=== PATIENT | male | born 1980 | race Caucasian/White ===

== ENCOUNTER 2022-07-17 10:16 | Emergency (ER) | payer OTHER, SELFPAY ==
[2022-07-17 10:23] VITALS: BP 135/83; PULSE 88; RESP 15; TEMP 36.4; O2SAT 100; BMI 25.0
--- NOTE | 2022-07-17 11:52 | ED.MALEGU ---
HPI - Male Genitourinary General Chief complaint: Urogenital-Male Stated complaint: brusing,pain post urology appointment Time Seen by Provider: 07/17/22 10:56 Source: patient Mode of arrival: Ambulatory History of Present Illness HPI Narrative: 42-year-old male presents with concern for testicular changes with bruising, skin pain and some dry skin for the past 5-6 days. Patient states he has had chronic issues with mild tooth ache like intermittent testicular pain ever since his vasectomy in October of 2020. He did see urology for this that fall, he also states that he had an ultrasound about a month ago to evaluate things and nothing was found. Additionally he did go see urology in [place] of last week he said that they did not do any procedures but they did do a basic urologic/testicular exam at that time. It was the next morning after this that he woke up and found he had some bruising and increased tenderness to his testicles. He does not feel like the exam itself should have caused this. Since that time he has had gradually increasing pain and tenderness in the area with what he perceives to be increased bruising but also describes some flaking skin and possible red area. He has no concern for sexually transmitted infections, denies any history of yeast infections jock itch or other skin problems in the area. He states his chronic intermittent testicular pain has been a 1 or 2/10 and the pain he is had since Friday morning has been gradually increasing has been constant does not feel like a bruise and he rates it as 3/10. He has not noted any changes to skin anywhere else on his body also denies any other symptoms including fatigue, loss appetite, fevers, chills, nausea, vomiting, diarrhea, dysuria or any other symptoms. Related Data Home Medications Medication Instructions Recorded Confirmed lisinopril 20 mg tablet 20 mg PO DAILY 10/19/20 01/31/21 Previous Rx's Medication Instructions Recorded doxycycline hyclate 100 mg capsule 100 mg PO BID skin infection 7 07/17/22 days #14 caps Allergies Allergy/AdvReac Type Severity Reaction Status Date / Time No Known Drug Allergies Allergy Verified 07/17/22 10:24 Review of Systems Review of Systems Narrative: See HPI Patient History Medical History Sterilization consult Social History Smoking Status: Unknown if ever smoked Smoking Status: Unknown if ever smoked alcohol intake frequency: holidays/special occasions only Substance Use Type: does not use Exam Narrative Exam Narrative: GENERAL: 42 year old patient appears stated age. Well-developed patient, in mild distress. HEAD: Atraumatic. Normocephalic. EYES: Pupils equal round and reactive. Extraocular motions intact. No scleral icterus. No injection or drainage. ENT: Nose without bleeding, purulent drainage. Airway patent. NECK: Trachea midline. Non tender CARDIOVASCULAR: Regular rate and rhythm without murmurs, gallops, or rubs. RESPIRATORY: Clear to auscultation. No increased work of breathing or respiratory distress. GASTROINTESTINAL: Abdomen soft, non-tender, nondistended. 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 No obvious swelling or masses noted. Patient does have multiple areas with mild erythema and purplish bruising present both on the shaft of his penis and also on the scrotum. There isn't a roughly annular purplish lesion on the shaft of the patient's penis is approximately 2-1/2 cm in diameter, there is also a slightly dry and erythematous 2 cm lesion on the right inferior scrotum, additionally there are 1 cm and 2 cm purplish lesions on the anterior/inferior aspect of the patient's penis. They are nontender there is slight discharge from 1 of these lesions and otherwise no broken skin is noted, they are somewhat dry appearing and some are slightly scaling. No fluctuance noted, no induration no appreciable swelling. Skin is not tender/sensitive to light touch. EXTREMITIES: No edema or joint tenderness. BACK: Nontender without deformity or crepitance. No flank tenderness. NEURO: AOx3. SKIN: No rash or erythema of visible areas Initial Vital Signs Initial Vital Signs: Vital Signs Temperature 97.5 F L 07/17/22 10:23 Pulse Rate 88 07/17/22 10:23 Respiratory Rate 15 07/17/22 10:23 Blood Pressure 135/83 07/17/22 10:23 Pulse Oximetry 100 07/17/22 10:23 Oxygen Delivery Method Room Air 07/17/22 10:23 Course Orders Ordered: ED Orders 07/17/22 12:19 Genital Culture Stat 07/17/22 12:24 US scrotum Stat 07/17/22 13:24 CBC Auto Diff [Complete Blood Count AUTO DIFF] Stat CMP [Comprehensive Metabolic Panel] Stat Lactate (Lactic Acid) Stat PTT Partial Thromboplastin Lee Stat Prothrombin Time INR Stat Vital Signs Vital signs: Vital Signs - 8 hr 07/17/22 14:32 Pulse Rate 72 Respiratory Rate 16 Blood Pressure 127/79 Pulse Oximetry 99 Oxygen Delivery Method Room Air MDM - Male Genitourinary Differential Diagnosis Differential diagnosis: Likely other (skin infection, cellulitis, STI) Medical Records Attestation: I reviewed the patient's medical records. Lab Data Attestation: I reviewed the patient's lab results. 07/17/22 13:24 07/17/22 13:24 Labs: Lab Results 07/17/22 07/17/22 07/17/22 Range/Units 13:24 13:24 13:24 WBC 6.5 (4.5-11.0) X10^3/uL RBC 4.73 (4.5-5.9) X10^6/uL Hgb 14.6 (13.5-17.5) g/dL Hct 43.4 (41-53) % MCV 91.8 (80-100) fL MCH 31.0 (26-34) PG MCHC 33.7 (30-36) % RDW 14.2 (11.6-14.8) % Plt Count 233 (150-400) X10^3/uL Neut % (Auto) 64.4 (50-75) % Lymph % (Auto) 25.8 (25-40) % [place] % (Auto) 6.7 (3-14) % Eos % (Auto) 2.5 (2-4) % Baso % (Auto) 0.6 (0-2) % Neut # (Auto) 4200 (1131-2704) /uL Lymph # (Auto) 1700 (6526-6974) /uL [place] # (Auto) 400 (0-900) /uL Eos # (Auto) 200 (0-450) /uL Baso # (Auto) 0 (0-100) /uL PT 11.2 (10.1-12.7) SECONDS INR 1.0 (0.9-1.3) APTT 33 (26-36) SECONDS Sodium 137 (137-145) mmol/L Potassium 3.8 (3.4-5.1) mmol/L Chloride 99 (98-107) mmol/L Carbon Dioxide 32 (22-32) mmol/L BUN 11 (9-20) mg/dL Creatinine 0.69 (0.66-1.25) mg/dL Estimated GFR > 60 (>60) mL/min BUN/Creatinine Ratio 15.9 (6-22) Glucose 112 H (70-100) mg/dL Lactate (0.7-2.1) mmol/L Calcium 9.2 (8.4-10.2) mg/dL Total Bilirubin 0.4 (0.2-1.3) mg/dL AST 33 (17-59) IU/L ALT 49 (<50) IU/L Alkaline Phosphatase 61 (38-126) U/L Total Protein 7.7 (6.3-8.2) g/dL Albumin 4.6 (3.5-5.0) g/dL Globulin 3.1 (1.7-4.1) g/dL Albumin/Globulin Ratio 1.5 (1.0-2.8) 07/17/22 Range/Units 13:24 WBC (4.5-11.0) X10^3/uL RBC (4.5-5.9) X10^6/uL Hgb (13.5-17.5) g/dL Hct (41-53) % MCV (80-100) fL MCH (26-34) PG MCHC (30-36) % RDW (11.6-14.8) % Plt Count (150-400) X10^3/uL Neut % (Auto) (50-75) % Lymph % (Auto) (25-40) % [place] % (Auto) (3-14) % Eos % (Auto) (2-4) % Baso % (Auto) (0-2) % Neut # (Auto) (2816-8797) /uL Lymph # (Auto) (9284-1841) /uL [place] # (Auto) (0-900) /uL Eos # (Auto) (0-450) /uL Baso # (Auto) (0-100) /uL PT (10.1-12.7) SECONDS INR (0.9-1.3) APTT (26-36) SECONDS Sodium (137-145) mmol/L Potassium (3.4-5.1) mmol/L Chloride (98-107) mmol/L Carbon Dioxide (22-32) mmol/L BUN (9-20) mg/dL Creatinine (0.66-1.25) mg/dL Estimated GFR (>60) mL/min BUN/Creatinine Ratio (6-22) Glucose (70-100) mg/dL Lactate 0.7 (0.7-2.1) mmol/L Calcium (8.4-10.2) mg/dL Total Bilirubin (0.2-1.3) mg/dL AST (17-59) IU/L ALT (<50) IU/L Alkaline Phosphatase (38-126) U/L Total Protein (6.3-8.2) g/dL Albumin (3.5-5.0) g/dL Globulin (1.7-4.1) g/dL Albumin/Globulin Ratio (1.0-2.8) Imaging Data US scrotal: Radiologist's Impression: [address] [address] Ultrasound Report Signed Patient: Alonzo Chinchilla MR#: [id number] : 1980 Acct:[id number] Age/Sex: 42 / M Date of Service: 07/17/22 Loc: ED Accession Number: [id number] ?? Procedure: US scrotum Ordering Provider: Marilee Bishop P.A-C PROCEDURE:? US SCROTUM ? INDICATIONS:? scrotal/penis pain acute on chronic + bruising/skin change ? TECHNIQUE:? Real-time scanning was performed of the scrotum and testicles, with image documentation.? Color and pulse Doppler interrogation was performed of both testicles.? ? COMPARISON:? None. ? FINDINGS:? ? Right:? Testicle is normal in size at 4.7 x 2.4 x 3.3 cm, and homogenous in echotexture.? Epididymis is normal in overall size and morphology.? No hydrocele or varicoceles.? Overlying scrotal skin is normal in thickness.? ? Left:? Testicle is normal in size at 4.5 x 2.4 x 3.4 cm, and homogeneous in echotexture.? Epididymis is normal in overall size and morphology.? No hydrocele or varicoceles.? Overlying scrotal skin is normal in thickness.? ? Doppler:? Color and pulse Doppler demonstrate normal and symmetric arterial flow in both testicles.? ? IMPRESSION:? Normal testicular ultrasound. ? ? Dictated by: Lorenzo Peterson M.D. on 07/17/2022 at 13:12 ? ? Approved by: Lorenzo Peterson M.D. on 07/17/2022 at 13:13?? MDM Narrative Medical decision making narrative: 42-year-old male with history of chronic mild left testicle pain after vasectomy procedure in 2020 presents with concern for new bruised appearing rash of his penis and testicles present since Friday that has been gradually worsening. Symptoms started today after he saw urology for his chronic pain and had an exam but no procedure done. Exam today is concerning for an infectious process, cultures are obtained viral and bacterial. Patient has no concern for sexually transmitted infection and no history of similar symptoms. Labs are also obtained as well as ultrasound which returned unremarkable. Patient appears to have localized infection there is no evidence of abscess. Patient is placed on doxycycline after consultation with Attending physician, advised he should follow up closely with Urology or see dermatology for further return precautions provided, follow-up plan discussed, all questions answered. Discharge Plan Departure Patient Disposition: Home Clinical Impression: Infection of scrotum Activity Restrictions/Additional Instructions: Thank you for letting us be part of your care today in the emergency department. We did do labs today as well as an ultrasound further evaluate, the labs were looking okay, the ultrasound also looked okay. What seems to be going on a present which is different than your chronic pain issue appears to be specifically related to the skin in your groin region of your scrotum and penis. I am placing you on antibiotics for this as I suspect a bacterial infection, it is very important that you monitor for new or worsening symptoms or if you are not improving and you get re-evaluated. I recommend he follow up closely with Urology and/or dermatology in the next few days for a recheck particularly if you feel like your symptoms are not improving with the antibiotics. Of course if you have concerned that things are worsening you should also be re-evaluated or if necessary return to the emergency department. There is no evidence of an emergent or life threatening illness at this time, but follow up with your doctor in 1-2 days is recommended nonetheless to continue to rule out serious underlying causes of your symptoms. Please call the office for an appointment. Please return to the Emergency Department for any worsening or persistent symptoms. Please take medications as directed. Prescriptions: New doxycycline hyclate 100 mg capsule 100 mg PO BID 7 Days Qty: 14 0RF No Action lisinopril 20 mg tablet 20 mg PO DAILY Referrals: Nahomi Paula ARNP [Primary Care Provider] - Stand Alone Forms: Patient Portal/API
--- NOTE | 2022-07-17 12:22 | PC.NURSE ---
Stand by assist with Marilee Bishop for genital exam. Pt has redness on right side penis shaft,what appears as bruising on left side shaft and testicle.
--- NOTE | 2022-07-17 12:24 | DI.US.S_ITS ---
PROCEDURE: US SCROTUM INDICATIONS: scrotal/penis pain acute on chronic + bruising/skin change TECHNIQUE: Real-time scanning was performed of the scrotum and testicles, with image documentation. Color and pulse Doppler interrogation was performed of both testicles. COMPARISON: None. FINDINGS: Right: Testicle is normal in size at 4.7 x 2.4 x 3.3 cm, and homogenous in echotexture. Epididymis is normal in overall size and morphology. No hydrocele or varicoceles. Overlying scrotal skin is normal in thickness. Left: Testicle is normal in size at 4.5 x 2.4 x 3.4 cm, and homogeneous in echotexture. Epididymis is normal in overall size and morphology. No hydrocele or varicoceles. Overlying scrotal skin is normal in thickness. Doppler: Color and pulse Doppler demonstrate normal and symmetric arterial flow in both testicles. IMPRESSION: Normal testicular ultrasound. Dictated by: Lorenzo Peterson M.D. on 07/17/2022 at 13:12 Approved by: Lorenzo Peterson M.D. on 07/17/2022 at 13:13
[2022-07-17 13:36] LABS: Add Manual Diff / Slide Review NO; Basophils Absolute Auto 0 /uL (0-100); Basophils Percent Auto 0.6 % (0-2); Eosinophils Absolute Auto 200 /uL (0-450); Eosinophils Percent Auto 2.5 % (2-4); Hematocrit 43.4 % (41-53); Hemoglobin 14.6 g/dL (13.5-17.5); Lymphocytes Absolute Auto 1700 /uL (1100-4500); Lymphocytes Percent Auto 25.8 % (25-40); Mean Corpuscular HGB Conc 33.7 % (30-36); Mean Corpuscular Volume 91.8 fL (80-100); Monocytes Absolute Auto 400 /uL (0-900); Monocytes Percent Auto 6.7 % (3-14); Neutrophils Absolute Auto 4200 /uL (1500-7000); Neutrophils Percent Auto 64.4 % (50-75); Platelet Count 233 X10^3/uL (150-400); Red Blood Cell Count 4.73 X10^6/uL (4.5-5.9); Red Cell Distribution Width 14.2 % (11.6-14.8); White Blood Cell Count 6.5 X10^3/uL (4.5-11.0)
[2022-07-17 13:43] LABS: Prothrombin Time 11.2 SECONDS (10.1-12.7)
[2022-07-17 13:46] LABS: PTT Partial Thromboplastin Tim 33 SECONDS (26-36)
[2022-07-17 13:47] LABS: Lactate (Lactic Acid) 0.7 mmol/L (0.7-2.1)
[2022-07-17 13:49] LABS: Alanine Aminotransferase 49 IU/L (<50); Albumin 4.6 g/dL (3.5-5.0); Albumin Globulin Ratio 1.5 (1.0-2.8); Alkaline Phosphatase 61 U/L (38-126); Aspartate Aminotransferase 33 IU/L (17-59); BUN Creatinine Ratio 15.9 (6-22); Bilirubin Total 0.4 mg/dL (0.2-1.3); Blood Urea Nitrogen 11 mg/dL (9-20); Calcium 9.2 mg/dL (8.4-10.2); Carbon Dioxide 32 mmol/L (22-32); Chloride 99 mmol/L (98-107); Estimated Glomerular Filt Rate > 60 mL/min (>60); Globulin 3.1 g/dL (1.7-4.1); Glucose 112 mg/dL (70-100); HEMOLYSIS < 15 (0-50); Potassium 3.8 mmol/L (3.4-5.1); Sodium 137 mmol/L (137-145); Total Protein 7.7 g/dL (6.3-8.2)
[2022-07-17 14:32] VITALS: BP 127/79; PULSE 72; RESP 16; O2SAT 99
== END 2022-07-17 14:44 | disposition home or self-care (01) ==
PROVIDERS: Emergency Provider Student in an Organized Health Care Education/Training Program; PCP Nurse Practitioner
DX: N49.2 Inflammatory disorders of scrotum (principal)
CPT/HCPCS: 36415; 76870; 80053; 83605; 85025; 85610; 85730; 87070; 87077; 87147; 87205; 87252; 99281; 99284